=== PATIENT | female | born 1955 | race American Indian/Alaskan Native ===

== ENCOUNTER 2017-04-29 17:48 | Emergency (ER) | payer MEDICAID ==
[2017-04-29 18:29] LABS: Basophils % (Auto) 1.7 % (0.0-1.8); Eosinophils % (Auto) 2.2 % (0.0-4.3); Hematocrit 40.5 % (30.3-42.9); Hemoglobin 13.4 gm/dl (10.1-14.3); Mean Corpuscular HGB Conc 33 % (30-34); Mean Corpuscular Hemoglobin 26 pg (28-32); Mean Corpuscular Volume 79 fl (79-97); Platelet Count 161 K/mm3 (140-440); Red Blood Count 5.11 M/mm3 (3.65-5.03); Red Cell Distribution Width 15.8 % (13.2-15.2); White Blood Count 7.5 K/mm3 (4.5-11.0)
[2017-04-29 18:49] LABS: Anion Gap 19 mmol/L; Blood Urea Nitrogen 14 mg/dL (7-17); Calcium 9.1 mg/dL (8.4-10.2); Carbon Dioxide 24 mmol/L (22-30); Chloride 104.7 mmol/L (98-107); Glucose 106 mg/dL (65-100); Sodium 144 mmol/L (137-145)
[2017-04-29 19:47] VITALS: BP 201/129
[2017-04-29] MEDS ORDERED: CATAPRES PO ONE (20:04)
== END 2017-04-29 20:54 | disposition left against medical advice (07) ==
LOC: ED 17:48
DX: I10 Essential (primary) hypertension (principal); Z53.21 Procedure and treatment not carried out due to patient leaving prior to being seen by health care provider
CPT/HCPCS: 36415; 80048; 85025